=== PATIENT | female | born 1935 | race Caucasian/White ===

== ENCOUNTER 2020-05-29 10:11 | Emergency (ER) | payer OTHER ==
[~2020-05-29] VITALS: Ht 149.9 cm; Wt 49.9 kg
[~2020-05-29 10:11] MED LIST: ACET-285 PO; ACET-929 PO; ALEN1TAB32 PO; ASPI-543 PO; CLOP75TA41 PO; DILT240C71 PO; HYDR12.56 PO; LANS30CA57 PO; LOSA25TA38 PO; METO-169 PO; NITR1CAP23 PO; TOLT2CAP7 PO
[2020-05-29 11:38] VITALS: BP 138/63
[2020-05-29] MEDS ORDERED: traMADol HCL 50 MG TAB PO ONE (12:00)
== END 2020-05-29 12:55 | disposition home or self-care (01) ==
LOC: ER 10:11
DX: S32.010A Wedge compression fracture of first lumbar vertebra, initial encounter for closed fracture (principal); M48.061 Spinal stenosis, lumbar region without neurogenic claudication; E11.9 Type 2 diabetes mellitus without complications; I10 Essential (primary) hypertension; Z90.49 Acquired absence of other specified parts of digestive tract; Z79.899 Other long term (current) drug therapy; Z88.1 Allergy status to other antibiotic agents; Z88.8 Allergy status to other drugs, medicaments and biological substances; W19.XXXA Unspecified fall, initial encounter; Y93.89 Activity, other specified; Y92.89 Other specified places as the place of occurrence of the external cause; Y99.8 Other external cause status
CPT/HCPCS: 70450; 72131; 81002

== ENCOUNTER 2020-07-07 11:04 | Emergency (ER) | payer OTHER ==
[~2020-07-07] VITALS: Ht 149.9 cm; Wt 46.7 kg
[2020-07-07 13:16] LABS: Basophils # (auto) 0 10 ^3/uL (0-0.2); Basophils % (auto) 0.5 % (0.0-2.0); Eosinophils # (auto) 0.2 10 ^3/uL (0-0.8); Eosinophils % (auto) 3.5 % (0.0-7.0); Hematocrit 40.5 % (36.0-46.0); Hemoglobin 13.9 g/dL (12.2-16.2); Lymphocytes # (auto) 1.7 10 ^3/uL (0.4-5.4); Lymphocytes % (auto) 28.1 % (10.0-50.0); Mean Corpuscular Hemoglobin 30.5 pg (28.0-32.0); Mean Corpuscular Hgb Conc. 34.3 g/dL (32.0-36.0); Mean Corpuscular Volume 89.1 fL (80.0-100.0); Monocytes # (auto) 0.7 10 ^3/uL (0-1.3); Neutrophils # (auto) 3.3 10 ^3/uL (1.6-8.6); Neutrophils % (auto) 55.9 % (37.0-80.0); Platelet Count (auto) 334 10^3/uL (140-450); Red Blood Cells 4.55 10^6/uL (4.0-5.20); Red Cell Distribution Width 13.7 % (11.8-14.3)
[2020-07-07 13:20] LABS: INR 1.02 (0.9-1.15); Partial Thromboplastin Time 26.2 sec (23.0-31.2)
[2020-07-07 13:23] LABS: Albumin 4.1 g/dL (3.4-5.0); Calcium 10.6 mg/dL (8.5-10.1); Magnesium 1.6 mg/dL (1.6-2.6); Potassium 3.3 mmol/L (3.5-5.1)
[2020-07-07 13:28] LABS: BUN/Creatinine Ratio 27.5; Bilirubin, Total 0.6 mg/dL (0.2-1.0); Total Protein 7.6 g/dL (6.4-8.2)
[2020-07-07 15:00] VITALS: BP 104/56
[2020-07-07] MEDS ORDERED: POTASSIUM CHL 20 Meq TABLET PO ONE (15:30)
== END 2020-07-07 16:15 | disposition home or self-care (01) ==
LOC: ER 11:04
DX: J20.8 Acute bronchitis due to other specified organisms (principal); E87.6 Hypokalemia; E11.9 Type 2 diabetes mellitus without complications; I10 Essential (primary) hypertension; Z20.828 Contact with and (suspected) exposure to other viral communicable diseases
CPT/HCPCS: 36415; 71045; 80053; 83605; 83735; 83880; 84484; 85025; 85610; 85730; 87040; 87426; 99284; C9803; U0003